=== PATIENT | female | born 1995 | race Hispanic/Latino ===

== ENCOUNTER 2021-11-01 05:43 | Inpatient (IN) | payer OTHER ==
[2021-10-30 14:07] LABS: Basophils % (Auto) 0.2 % (0.0-1.8); Eosinophils # (Auto) 0.1 K/mm3 (0.0-0.4); Eosinophils % (Auto) 0.6 % (0.0-4.3); Hematocrit 31.4 % (30.3-42.9); Hemoglobin 10.3 gm/dl (10.1-14.3); Lymphocytes # (Auto) 1.1 K/mm3 (1.2-5.4); Lymphocytes % (Auto) 10.4 % (13.4-35.0); Mean Corpuscular HGB Conc 33 % (30-34); Mean Corpuscular Volume 79 fl (79-97); Monocytes # (Auto) 0.8 K/mm3 (0.0-0.8); Monocytes % (Auto) 7.6 % (0.0-7.3); Platelet Count 350 K/mm3 (140-440); Red Blood Count 3.99 M/mm3 (3.65-5.03); Red Cell Distribution Width 13.6 % (13.2-15.2)
--- NOTE | 2021-10-31 17:08 | History and Physical Report ---
History of Present Illness Date of examination: 10/30/21 Chief complaint: IUGR, Breech presentation History of present illness: EDC Confirmation: 11/22/2021 Gestational Age: 13 weeks Past History : 2 Term Births: 0 Premature Births: 0 Living Children: 0 Para: 0 Mult. Births: 0 Prev : 0 Aborta: 1 Elect. Ab: 0 Spont. Ab: 1 Ectopics: 0 # 1 Delivery date: 2020 Weeks Gestation: 6.3 wks Delivery type: SAB Comments: No heavy bleeding or complications. Past Medical History: Reviewed and updated today: Negative Past Medical History Past Surgical History: Reviewed and updated today: negative Family History Summary: Mother - Has IN female <65 - Entered On: 05/17/2021 Mother - Has Family History Breast Cancer - Entered On: 06/07/2021 MGM - Has Family History Breast Cancer - Entered On: 06/07/2021 Social History: Patient is single Smoking History: Patient currently smokes every day. Risk Factors: Smoked Tobacco Use: Current every day smoker Cigarettes: Yes Year Started: 2015 Years Smoked: 2020 Smokeless Tobacco Use: Never Counseled to Quit/Cut Down: yes Passive Smoke Exposure: yes HIV High Risk Behavior: no Exercise: yes Times/wk: 2 Type of Exercise: Walking Exercise Counseling: yes Seatbelt Use: preg-deputy general counsel % Sun Exposure: rarely Family History Risk Factors: Family History of IN in 1 Female Relative Age < 65: yes Family History of IN in 1 Male Relative Age < 55: no No Dietary Counseling Reason: pn yes Past Medical History Anesthesia Complications: negative Anemia: negative Autoimmune Disorder: negative Bleeding Disorder: negative Blood Transfusions: negative Breast Disease: negative Diabetes: negative Heart Disease: negative Hypertension: negative Hepatitis/Liver Disease: negative Kidney Disease/UTI: negative Neurologic/Epilepsy/Migraines: negative Phlebitis/Varicosities: negative Psychiatric: negative Pulmonary Disease/Asthma: negative Thyroid Disease: negative Hospitalizations: negative Surgery (Non-fiberglass fabricator): negative Abnormal PAP: negative CARYN Exposure: negative Infertility: negative Uterine Anomaly: negative Uterine Surgery (not C/S): negative Other Gynecologic Problems: negative Social Hx: Patient is single Smoking History: Patient currently smokes every day. Infection History Hx of STD: none HIV Risk Eval: no Hepatitis B Risk Eval: low risk Personal hx. of genital herpes: no Partner hx. of genital herpes: no Rash, Viral, or Febrile illness since last LMP? no Varicella/Chicken Pox Status: No TB Risk: no Genetic History Congenital Heart Defect: Mom: no Dad: no Rigo Disease: Mom: no Dad: no Thalassemia Mom: no Dad: no Neural Tube Defect Mom: no Dad: no Down's Syndrome Mom: no Dad: no Nakul-Sachs Mom: no Dad: no Sickle Cell Disease/Trait Mom: no Dad: no Hemophilia Mom: no Dad: no Muscular Dystrophy Mom: no Dad: no Cystic Fibrosis Mom: no Dad: no Grady Chorea Mom: no Dad: no Mental Retardation Mom: no Dad: no Fragile X Mom: no Dad: no Other Genetic/Chromosomal Disorder Mom: no Dad: no Child w/other defect Mom: no Dad: no Enviromental Exposures Xray Exposure: no Medication, drug, or alcohol use since LMP: yes Chemical/Other Exposure: no Exposure to Cat Liter: yes Hx of Parvovirus (Fifth Disease): no Occupational Exposure to Children: none Active Medications (reviewed today): None Current Allergies (reviewed today): No known allergies Physical Exam General appearance: well nourished, healthy appearing, no distress Chest/Lungs: respiratory effort normal, lungs clear to auscultation Cardiovascular: normal rate and rhythm Medications and Allergies Allergies Allergy/AdvReac Type Severity Reaction Status Date / Time No Known Allergies Allergy Verified 10/29/21 11:49 Home Medications Medication Instructions Recorded Confirmed Last Taken Type No Known Home Medications [No 10/29/21 10/29/21 Unknown History Reported Home Medications] Active Meds: Active Medications Carboprost Tromethamine (Carboprost Tromethamine 250 Mcg/1 Ml Inj) 250 mcg IM ONCE PRN PRN Reason: bleeding Citric Acid/Sodium Citrate (Bicitra Oral Liqd 30ml) 30 ml PO ONCE ONE Stop: 11/01/21 05:31 Famotidine (Famotidine 20 Mg/2 Ml Inj) 20 mg IV ONCE ONE Stop: 11/01/21 05:31 Lactated Ringer's (Lactated Ringers) 1,000 mls @ 2,250 mls/hr IV PREOP GALINA Stop: 11/02/21 05:57 Oxytocin/Sodium Chloride (Pitocin/Ns 30 Unit/500ml) 30 units in 500 mls @ 0 mls/hr IV TITR GALINA; Protocol Cefazolin Sodium (Ancef/Sterile Water 2 Gm/20 Ml) 2 gm in 20 mls @ 80 mls/hr IV PREOP NR; Protocol Stop: 11/01/21 23:59 Tranexamic Acid 1,000 mg/ (Sodium Chloride) 110 mls @ 100 mls/30 min IV ONCE NR Stop: 11/01/21 23:59 Methylergonovine Maleate (Methylergonovine Maleate 0.2 Mg/Ml Vial) 0.2 mg IM Q2H PRN PRN Reason: Uterine Bleeding Metoclopramide HCl (Metoclopramide 10 Mg/2 Ml Inj) 10 mg IV ONCE ONE Stop: 11/01/21 05:31 Misoprostol (Misoprostol 200 Mcg Tab) 800 mcg MT ONCE PRN PRN Reason: bleeding - Vital Signs Vital signs: Vital Signs Temp Pulse Resp BP Pulse Ox 98.1 F 96 H 16 127/75 98 10/30/21 13:30 10/30/21 13:30 10/30/21 13:30 10/30/21 13:30 10/30/21 13:30 Temp Pulse Resp BP Pulse Ox 98.1 F 96 H 16 127/75 98 10/30/21 13:30 10/30/21 13:30 10/30/21 13:30 10/30/21 13:30 10/30/21 13:30 Results Result Diagrams: 11/01/21 Unknown All other labs normal. Assessment and Plan - Patient Problems (1) IUGR (intrauterine growth restriction) Current Visit: No Status: Acute (2) Breech presentation Current Visit: No Status: Acute
[~2021-11-01 05:43] MED LIST: BICITRA ORAL LIQD 30ML PO ONE; CARBOPROST TROMETHAMINE 250 MCG/1 ML INJ IM PRN; FAMOTIDINE 20 MG/2 ML INJ IV ONE; METHYLERGONOVINE MALEATE 0.2 MG/ML VIAL IM PRN; METOCLOPRAMIDE 10 MG/2 ML INJ IV ONE; OXYTOCIN DRIP 30 UNITS/500 ML BAG IV SCH; TRANEXAMIC ACID 1,000 MG in SODIUM CHLORIDE 0.9% 100 ML IV NR; ceFAZolin/Water 2 GM/20 ML 2 GM/20 ML SYRINGE IV NR; miSOPROStol 200 MCG TAB PR PRN
--- NOTE | 2021-11-01 06:40 | Ultrasound Report ---
US OB limited INDICATION / CLINICAL INFORMATION: Presentation COMPARISON: None available. TECHNIQUE: Using a transcutaneous probe, multiple grayscale, color Doppler, and spectral Doppler imag es of the uterus and fetus were captured and stored. FINDINGS: Single breech fetus is demonstrated with heart rate of 124 bpm. The clinical estimate of gestational age is 37 weeks 0 days. EDC 11/22/2021. IMPRESSION: 1. Single living breech fetus. Signer Name: Casper Mata II, MD Signed: 11/01/2021 6:36 AM Workstation Name: [id number]
--- NOTE | 2021-11-01 07:00 | Anesthesia Day of Surgery ---
Anesthesia Day of Surgery - Day of Surgery Patient Examined: Yes Patient H&P Reviewed: Yes Patient is NPO: Yes Beta Blockers: No Cardiac Clearance: No Pulmonary Clearance: No Hernan's Test: N/A
--- NOTE | 2021-11-01 07:01 | Anesthesia Consultation ---
Anesthesia Consult and Med Hx Date of service: 11/01/21 - Airway Anesthetic Teeth Evaluation: Good ROM Head & Neck: Adequate Mental/Hyoid Distance: Adequate Mallampati Class: Class II Intubation Access Assessment: Probably Good - Pulmonary Exam CTA: Yes - Cardiac Exam Cardiac Exam: RRR - Pre-Operative Health Status ASA Pre-Surgery Classification: ASA2 Proposed Anesthetic Plan: Spinal Nerve Block: TAP - Pulmonary Hx Smoking: Yes (STOPPED X 2 MONTHS) Hx Asthma: No Hx Sleep Apnea: No (DAVY PRE SCREEN LOW RISK) - Cardiovascular System Hx Hypertension: No Hx Heart Attack/AMI: No Hx Angina: No - Central Nervous System Hx Seizures: No Hx Psychiatric Problems: No - Gastrointestinal Hx Gastroesophageal Reflux Disease: No - Endocrine Hx Renal Disease: No Hx Liver Disease: No Hx Insulin Dependent Diabetes: No Hx Non-Insulin Dependent Diabetes: No Hx Hypothyroidism: No Hx Hyperthyroidism: No - Hematic Hx Anemia: No Hx Sickle Cell Disease: No - Other Systems Hx Alcohol Use: No Hx Substance Use: Yes (THC- STOPPED WITH ) Hx Cancer: No Hx Obesity: Yes
[2021-11-01] MEDS ORDERED: KETOROLAC 30 MG/1 ML INJ ONE (07:04)
[2021-11-01] MEDS ORDERED: BUPIVACAINE/PF (0.5%) 5 MG/1 ML 30 ML VIAL INFILTRATI ONE (07:04)
[2021-11-01 07:19] LABS: Basophils % (Auto) 0.2 % (0.0-1.8); Eosinophils # (Auto) 0.1 K/mm3 (0.0-0.4); Eosinophils % (Auto) 0.9 % (0.0-4.3); Hematocrit 28.5 % (30.3-42.9); Hemoglobin 9.7 gm/dl (10.1-14.3); Lymphocytes # (Auto) 1.6 K/mm3 (1.2-5.4); Lymphocytes % (Auto) 13.8 % (13.4-35.0); Mean Corpuscular HGB Conc 34 % (30-34); Mean Corpuscular Volume 78 fl (79-97); Monocytes # (Auto) 0.8 K/mm3 (0.0-0.8); Monocytes % (Auto) 6.6 % (0.0-7.3); Platelet Count 327 K/mm3 (140-440); Red Blood Count 3.66 M/mm3 (3.65-5.03); Red Cell Distribution Width 13.7 % (13.2-15.2)
[2021-11-01] MEDS: LACTATED RINGERS 1,000 ML IV SCH ×3 (07:21→12:19)
[2021-11-01] MEDS ORDERED: NALOXONE 0.4 MG/1 ML INJ IV PRN ×2 (07:30→15:01)
[2021-11-01] MEDS ORDERED: diphenhydrAMINE 50 MG/ML VIAL IV PRN (07:30)
[2021-11-01] MEDS ORDERED: PROMETHAZINE 25 MG TAB PO PRN (07:30)
[2021-11-01] MEDS ORDERED: ONDANSETRON 4 MG/2 ML INJ IV PRN ×2 (07:30→15:01)
[2021-11-01] MEDS ORDERED: NalbUPHINE 10 MG/1 ML INJ IV PRN (07:30)
[2021-11-01] MEDS ORDERED: PROMETHAZINE 25 MG RECT SUPP PR PRN ×2 (07:30→15:01)
[2021-11-01] MEDS ORDERED: HYDROmorphone 1 MG/1 ML INJ IV PRN (08:00)
[2021-11-01] MEDS ORDERED: BICITRA ORAL LIQD 30ML PO SCH (12:00)
[2021-11-01] MEDS ORDERED: METOCLOPRAMIDE 10 MG/2 ML INJ IV SCH (12:00)
[2021-11-01] MEDS ORDERED: FAMOTIDINE 20 MG/2 ML INJ IV SCH (12:00)
[2021-11-01] MEDS ORDERED: ceFAZolin/STERILE WATER 2 GM/20 ML SYRINGE IV ONE (13:05)
[2021-11-01] MEDS ORDERED: SODIUM CHLORIDE 0.9% IRR 1,500 ML BOTTLE IR ONE (13:30)
[2021-11-01] MEDS ORDERED: WATER FOR IRRIG STERILE 1,500 ML BOTTLE IR ONE (13:30)
[2021-11-01] MEDS ORDERED: PHENYLEPHRINE/NS 1,000 MCG/10 ML SYRINGE (OR USE) IV ONE (13:53)
[2021-11-01] MEDS ORDERED: fentaNYL 100 MCG/2 ML INJ ONE (13:53)
--- NOTE | 2021-11-01 14:42 | Progress Note ---
Spinal Anesthesia Block - Spinal Anesthesia Block Start Time: 13:00 Stop Time: 13:05 Performed by:: NIVIA JUNIOR Procedure: Spinal anesthesia block is being performed for [c/s]. H&P, labs have been reviewed. Patient's questions and concerns have been answered. Informed consent has been performed. Timeout has was performed. Patient in sitting position on side of bed. Sterile prep and drape was performed. 3 mL 1% lidocaine skin wheal at L [3]-L [4]. Needle introducer advanced. 24-gauge spinal needle advanced, [+] CSF [-] blood. [Marcaine 10.5mg and Precedex 5mcg] Spinal dose was given. All needles removed. Patient tolerated procedure well.
[2021-11-01] MEDS ORDERED: ePHEDrine SULFATE 50 MG/1 ML INJ ONE (14:54)
[2021-11-01] MEDS ORDERED: SENNOSIDES 8.6 MG TAB PO PRN (15:01)
[2021-11-01] MEDS ORDERED: KETOROLAC 30 MG/1 ML INJ IV PRN ×2 (15:01→22:30)
[2021-11-01] MEDS ORDERED: MORPHINE 4 MG/1 ML INJ IV PRN (15:01)
[2021-11-01] MEDS ORDERED: D5W/LACTATED RINGERS 1,000 ML IV SCH (15:01)
[2021-11-01] MEDS ORDERED: SIMETHICONE 80 MG CHEW TAB PO PRN (15:01)
[2021-11-01] MEDS ORDERED: MAGNESIUM HYDROXIDE (MOM) ORAL LIQD UDC PO PRN (15:01)
[2021-11-01] MEDS ORDERED: MORPHINE 2 MG/1 ML INJ IV PRN (15:01)
[2021-11-01] MEDS ORDERED: OXYTOCIN DRIP 30 UNITS/500 ML BAG IV SCH (15:01)
[2021-11-01] MEDS ORDERED: WITCH HAZEL/ GLYCERIN PAD TP PRN (15:01)
[2021-11-01] MEDS ORDERED: LANOLIN/ZINC/DIMETHICONE (LANSINOH) 7 GM TP PRN (15:01)
[2021-11-01] MEDS ORDERED: ACETAMINOPHEN 500 MG TAB PO PRN (18:30)
[2021-11-01] MEDS: ceFAZolin/NS 1 GM/50 ML 1 GM/50 ML BAG IV SCH (20:04)
--- NOTE | 2021-11-01 22:08 | Operative Report ---
Operative Report Operative Report: Date of operation: 11/01/2021 Pre-operative diagnosis: 1. Intrauterine at 37 weeks gestational age 2. IUGR 3. Breech presentation 4. BMI 39.2 kg/m2 Post-operative diagnosis: 1. Intrauterine at 37 weeks gestational age 2. IUGR 3. Breech presentation 4. 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 14 oz. Apgars of 8 and 9 at one and 5 minutes Indications: This is a 26-year-old female G2, P0 who presents delivery at 37 weeks due to growth restriction and persistent breech presentation. Grossly normal bilateral tubes and ovaries. 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 The left tube and ovary were attached to the rudimentary uterine horn. Procedure: Patient was taking to the operating room. Spinal anesthesia was placed. Patient was then prepped and draped in the usual sterile fashion Timeout was performed. Once an appropriate level of anesthesia was noted, a Pfannenstiel incision was made and extended the fascia which was incised and extended lateral direction. The overlying fascia was sharply dissected away from the underlying rectus muscles in the superior inferior direction. The midline was entered bluntly. Bladder blade was placed. Vesicouterine fold was incised with blunt dissection bladder flap was created. A transverse incision was made in the lower uterine segment and extended superolateral direction with finger fractionation. Clear fluid was noted. Infant was delivered from the alvino breech position, with spontaneous cry and excellent tone. Mouth and nose bulb suctioned. Cord was doubly clamped and cut was given to the resuscitation team present. Placenta was delivered. The uterus was exteriorized and cleaned of any further placental tissue and products of conception. Uterine incision was approximated using 0 Vicryl in a running interlocking stitch followed by further suture of 0 Vicryl in imbricating fashion. When hemostasis was noted the uterus was allowed back in the pelvic cavity. Pelvis was irrigated with warm normal saline. Once hemostasis was noted the rectus muscles were approximated using 0 Vicryl interrupted simple stitches 3. Once hemostasis was noted the fascia was approximated using 0 Vicryl simple running stitch. The incision was irrigated with warm saline, once hemostasis as noted, the subcuticular adipose tissue was reapproximated using 3- 0 Vicryl in a simple running fashion. Skin was approximated using 4-0 Vicryl on a Trent needle in a subcuticular manner. Counts were correct x3. Patient tolerated the procedure well, she was taken to recovery room in stable condition.
--- NOTE | 2021-11-01 22:08 | Event Note ---
Date: 11/01/21 Patient was resting in bed no complaints she was informed of the unicornuate uterus with red material left uterine horn, questions were encouraged and answered
[2021-11-02] MEDS: ceFAZolin/NS 1 GM/50 ML 1 GM/50 ML BAG IV SCH (03:22)
[2021-11-02 06:07] LABS: Hematocrit 27.4 % (30.3-42.9); Hemoglobin 9.1 gm/dl (10.1-14.3)
--- NOTE | 2021-11-02 10:40 | Post Anesthesia Evaluation ---
- Post Anesthesia Evaluation Patient Participated: Yes Airway Patent: Yes Stable Respiratory Function: Yes Nausea/Vomiting: No Temp > 96.8F: Yes Pain Manageable: Yes Adequeate Hydration: Yes Anesthesia Complications: No Block Receding Appropriately: Yes Patient on Ventilator: No
--- NOTE | 2021-11-02 10:54 | Progress Note ---
Assessment and Plan A: 26 y.o. primary , POD #1. - Patient Problems (1) delivery delivered Current Visit: Yes Status: Acute Plan to address problem: Continue with care. Advance diet as tolerated. Encourage ambulation. Pain medication to be given as ordered. Anticipate Discharge home on 11/03. Subjective - Subjective Date of service: 11/02/21 Principal diagnosis: s/p primary , POD #1 Interval history: Discussed expectations: Pain control, ambulation. Pt states that pain medication is only helping some with pain. Patient reports: appetite normal, voiding normally, pain well controlled : doing well Objective - Vital Signs Latest vital signs: Vital Signs Temp Pulse Resp BP BP Pulse Ox Pulse Ox 11/02/21 10:21 97 11/02/21 08:05 98.1 F 83 20 107/64 97 11/02/21 06:48 98.2 F 84 18 94/56 94 11/02/21 04:16 18 11/02/21 03:46 20 11/02/21 01:25 18 11/02/21 01:14 98.3 F 89 18 114/70 95 11/02/21 00:55 20 11/01/21 21:01 98.5 F 103 H 18 105/62 97 11/01/21 20:42 18 11/01/21 20:12 18 11/01/21 20:00 100 11/01/21 16:30 98.6 F 74 18 101/57 96 11/01/21 16:26 96 11/01/21 15:15 67 18 109/65 98 11/01/21 15:00 70 16 98/52 98 11/01/21 14:45 70 16 98/52 98 11/01/21 14:35 67 15 87/45 98 11/01/21 14:30 80 14 97/53 98 11/01/21 14:25 97.0 F L 72 16 88/49 98 11/01/21 12:31 85 115/59 Intake and Output 11/01/21 11/02/21 11/02/21 22:59 06:59 14:59 Intake Total 390 600 320 Output Total 300 2200 Balance 90 -1600 320 Intake: IV 150 ANCEF/NS 1 GM/50 ML 1 gm 50 In 50 ml @ 100 mls/hr IV Q8H [facility] Rx#:[id number] Oral 320 Intake, Free Water 240 600 Output: Urine 300 2200 Indwelling Catheter 200 1300 Void 900 Other: Total, Intake Amount 320 Total, Output Amount 200 900 # Voids Void 1 Estimated Blood Loss 457 - Exam Cardiovascular: Present: Regular rate Lungs: Present: Normal air movement Abdomen: Present: normal appearance, soft Uterus: Present: normal, firm Extremities: Present: normal Incision: Present: dressed (No drainage noted on dressing) - Labs Labs: Abnormal lab results 11/02/21 Range/Units 05:14 Hgb 9.1 L (10.1-14.3) gm/dl Hct 27.4 L (30.3-42.9) %
[2021-11-02] MEDS ORDERED: FLU VACC QUAD 2021-22(6MOS UP)/PF 60 MCG/0.5 ML SYRINGE IM ONE (12:00)
[2021-11-02] MEDS: oxyCODONE /ACETAMINOPHEN 5-325MG TAB PO PRN (13:32)
[2021-11-02] MEDS ORDERED: IBUPROFEN 600 MG TAB PO PRN (14:31)
[2021-11-02] MEDS ORDERED: TETANUS,DIPH,PERTUSS(ACELL) VACCINE 0.5 ML SYRINGE IM ONE (15:31)
[2021-11-02] MEDS: IBUPROFEN 800 MG TAB PO PRN (19:40)
[2021-11-03] MEDS: oxyCODONE /ACETAMINOPHEN 5-325MG TAB PO PRN ×2 (00:46→14:48)
[2021-11-03] MEDS: IBUPROFEN 800 MG TAB PO PRN (05:17)
[2021-11-03] MEDS ORDERED: TETANUS,DIPH,PERTUSS(ACELL) VACCINE 0.5 ML SYRINGE IM ONE (06:00)
--- NOTE | 2021-11-03 11:47 | Discharge Summary ---
Providers - Providers Date of Admission: 11/01/21 05:43 Date of discharge: 11/03/21 Attending physician: GREGG IBARRA 11/01/21 15:01 Consult to Pharmaceutical Engineer [CONS] Routine Reason For Exam: Primary care physician: GREGG IBARRA Hospitalization Delivery: Procedure: section, primary low transverse Episiotomy: none Laceration: none Incision: normal, dry, intact Other procedures: none complications: none Discharge diagnosis: IUP at term delivered baby: female Pertinent studies: Discussed expectations at home after a : incision care, ambulation, taking medication as prescribed, and calling with any questions or concerns regarding incision care. Hospital course: PPD #3 from [facility] for breech presentation at term. VSS. Denies chest pain, SOB, dizziness, headaches, and NVD. Meeting all goals. Voiding, ambulating, and passing gas without difficulty. Vaginal bleeding scant. Lower abdominal incision open to air, incision well-approximated without tenderness, redness or erythema. Prescribed medications and warning signs reviewed with pt. To keep scheduled appt in 1 week for incision check. Condition at discharge: Good Disposition: 01 HOME / SELF CARE / HOMELESS - Discharge Diagnoses (1) delivery delivered Status: Acute Plan - Discharge Medications Prescriptions: Docusate Sodium [Colace] 100 mg PO BID PRN #30 capsule PRN Reason: Constipation Ferrous Sulfate [Feosol 325 MG tab] 325 mg PO BID #90 tablet Ibuprofen [Motrin 800 MG tab] 800 mg PO TID PRN #30 tablet PRN Reason: Pain oxyCODONE /ACETAMINOPHEN [Percocet 5/325 mg] 1 - 2 tab PO Q4HR PRN #10 tablet PRN Reason: Pain - Provider Discharge Summary Activity: routine, no sex for 6 weeks, no heavy lifting 4 weeks, no strenuous exercise Diet: routine Instructions: routine Additional instructions: [] Smoking cessation referral if applicable(refer to patient education folder for contact #) [] Refer to [facility] Booklet Call your doctor immediately for: * Fever > 100.5 * Heavy vaginal bleeding ( >1 pad per hour) * Severe persistent headache * Shortness of breath * Reddened, hot, painful area to leg or breast * Drainage or odor from incision. * Keep incision clean and dry at all times and follow doctor's instructions regarding bathing/showering - Follow up plan Follow up: GREGG IBARRA MD [Primary Care Provider] - 7 Days (Happy Mother's Day! Congratulations on the of your baby girl! Thank you for allowing us to take care of you and your daughter. Please keep your scheduled incision check in 1 week. Please take all medications as prescribed. Should you have any questions after discharge, do not hesitate to contact us. )
[2021-11-03 13:36] VITALS: BP 117/71
== END 2021-11-03 18:30 | disposition home or self-care (01) | DRG 765 ==
LOC: APU 05:43 → OB 15:44
PROVIDERS: ADMIT Obstetrics & Gynecology; ATTEND Obstetrics & Gynecology
PROC: 10D00Z1 Extraction of Products of Conception, Low, Open Approach (ICD-10-PCS; principal; 2021-11-01)
PROC: 3E0234Z Introduction of Serum, Toxoid and Vaccine into Muscle, Percutaneous Approach (ICD-10-PCS; 2021-11-03)
DX: O32.1XX0 Maternal care for breech presentation, not applicable or unspecified (principal); O36.5930 Maternal care for other known or suspected poor fetal growth, third trimester, not applicable or unspecified; Z20.822 Contact with and (suspected) exposure to COVID-19; O99.214 Obesity complicating childbirth; Z3A.37 37 weeks gestation of pregnancy; Z37.0 Single live birth; Z23 Encounter for immunization
CPT/HCPCS: 36415; 76815; 85014; 85018; 85025; 86592; 86850; 86900; 86901; 90471; 90715; G0378; J3490; J7060; J7121; J0690; J1885; J2270; J2370; J2405; J2765; J3010; J7120; U0003